=== PATIENT | female | born 1985 | race African-American/Black ===

== ENCOUNTER 2020-03-01 21:41 | Emergency (ER) | payer BC ==
[2020-03-01] MEDS ORDERED: KETOROLAC TROMETHAMINE 60 MG/2 ML SDV IM ONE (22:57)
[2020-03-01] MEDS ORDERED: DIAZEPAM 5 MG TABLET PO ONE (22:57)
--- NOTE | 2020-03-01 23:00 | ER Document Report ---
ED Medical Screen (RME) - General Chief Complaint: Low Back Pain Stated Complaint: LOWER BACK PAIN Time Seen by Provider: 03/01/20 22:57 Mode of Arrival: Ambulatory Information source: Patient Notes: Patient is a 34-year-old -Martiniqu[place] female presenting with low back pain. 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 She states a couple days ago she lifted a heavy sack of male and felt some pain in her lower back. She went to bed with her back hurting and then woke up with worsening pain and spasms. No previous history of significant back injury or surgery. No bladder or bowel dysfunction. No saddle anesthesia. No focal weakness. No urinary symptoms. General exam: Uncomfortable appearing Musculoskeletal midline and paralumbar back tenderness. No step-off I have greeted and performed a rapid initial assessment of this patient. A comprehensive ED assessment and evaluation of the patient, analysis of test results and completion of the medical decision making process will be conducted by additional ED providers. Physical Exam - Vital signs Vitals: Temp Pulse Resp BP Pulse Ox 98.4 F 75 18 122/80 100 03/01/20 22:27 03/01/20 22:27 03/01/20 22:27 03/01/20 22:27 03/01/20 22:27 Course - Vital Signs Vital signs: Temp Pulse Resp BP Pulse Ox 98.4 F 75 18 122/80 100 03/01/20 22:27 03/01/20 22:27 03/01/20 22:27 03/01/20 22:27 03/01/20 22:27
[2020-03-02 00:46] LABS: APPEARANCE,URINE SLIGHTLY-CLOUDY; BILIRUBIN,URINE NEGATIVE (NEGATIVE); COLOR,URINE YELLOW; GLUCOSE, URINE NEGATIVE (NEGATIVE); KETONES,URINE NEGATIVE (NEGATIVE); PROTEIN,URINE NEGATIVE (NEGATIVE); URINE SPECIFIC GRAVITY 1.024
--- NOTE | 2020-03-02 02:31 | RADIOLOGY REPORT (SQ) ---
EXAM DESCRIPTION: [facility]: XR LUMBAR SPINE ANTEROPOSTERIOR, LATERAL, AND OBLIQUES Views: 4 CLINICAL HISTORY: 34 years Female; injury; low back pain after lifting heavy object COMPARISON: None. FINDINGS: Alignment is normal. No subluxation or significant loss of intervertebral disc height or vertebral body height. No evidence for acute fracture. No focal bone lesions. IMPRESSION: 1. Normal lumbar spine.
[2020-03-02 08:37] VITALS: BP 122/58
[2020-03-02] MEDS ORDERED: HYDROCODONE/ACETAMINOPHEN 5-325 MG TABLET PO ONE (09:20)
--- NOTE | 2020-03-02 09:26 | ER Document Report ---
ED General - General Chief Complaint: Back Pain Stated Complaint: LOWER BACK PAIN Time Seen by Provider: 03/01/20 22:57 Mode of Arrival: Ambulatory Information source: Patient - HPI Notes: Patient presents complaint of low back pain. She states this started approximately 2 days ago. It started after lifting a couple heavy bags at work. She states that the pain is severe and radiates across both sides of the lower back. It is sharp. It is constant. Is worse with movement and better with rest. It does radiate as well into both butt cheeks. She denies a denies any abnormal sensations or numbness. She has no saddle anesthesia or cauda equina signs. She states she has no problems with urination or bowel movements. No fevers. - Related Data Allergies/Adverse Reactions: No Known Allergies Allergy (Verified 03/02/20 09:21) Home Medications: ADHD Past Medical History - General Information source: Patient - Social History Smoking Status: Current Every Day Smoker Frequency of alcohol use: None Drug Abuse: None Family History: Reviewed & Not Pertinent Review of Systems - Review of Systems Constitutional: denies: Chills, Fever Cardiovascular: denies: Chest pain, Palpitations Respiratory: denies: Cough, Short of breath -: Yes All other systems reviewed and negative Physical Exam - Vital signs Vitals: Temp Pulse Resp BP Pulse Ox 98.4 F 75 18 122/80 100 03/01/20 22:27 03/01/20 22:27 03/01/20 22:27 03/01/20 22:27 03/01/20 22:27 Interpretation: Normal - General General appearance: Appears well, Alert - HEENT Head: Normocephalic, Atraumatic Eyes: Normal Pupils: PERRL - Respiratory Respiratory status: No respiratory distress Chest status: Nontender Breath sounds: Normal Chest palpation: Normal - Cardiovascular Rhythm: Regular Heart sounds: Normal auscultation Murmur: No - Abdominal Inspection: Normal Distension: No distension Bowel sounds: Normal Tenderness: Nontender Organomegaly: No organomegaly - Back Back: Normal, Tender - Bilateral lumbar spine- patient also has a straight leg raise that is positive bilaterally - Extremities General upper extremity: Normal inspection, Nontender, Normal color, Normal ROM, Normal temperature General lower extremity: Normal inspection, Nontender, Normal color, Normal ROM, Normal temperature, Normal weight bearing. No: Felipe's sign - Neurological Neuro grossly intact: Yes Cognition: Normal Orientation: AAOx4 [place] Coma Scale Eye Opening: Spontaneous [place] Coma Scale Verbal: Oriented Masood Coma Scale Motor: Obeys Commands Masood Coma Scale Total: 15 Speech: Normal Motor strength normal: LUE, RUE, LLE, RLE Sensory: Normal - Psychological Associated symptoms: Normal affect, Normal mood - Skin Skin Temperature: Warm Skin Moisture: Dry Skin Color: Normal Course - Vital Signs Vital signs: Temp Pulse Resp BP Pulse Ox 98.2 F 85 18 122/58 L 100 03/02/20 08:36 03/02/20 08:36 03/02/20 08:36 03/02/20 08:36 03/02/20 08:36 - Laboratory Laboratory results interpreted by me: 03/02/20 00:17 Urine Urobilinogen 2.0 H Leukocyte Esterase Rfl TRACE H Urine Ascorbic Acid 40 H - Diagnostic Test Radiology reviewed: Image reviewed, Reports reviewed Discharge - Discharge Clinical Impression: Low back strain Qualifiers: Encounter type: initial encounter Qualified Code(s): S39.012A - Strain of muscle, fascia and tendon of lower back, initial encounter Condition: Stable Disposition: HOME, SELF-CARE Instructions: Low Back Pain ([facility]), Muscle Strain ([facility]), Oral Narcotic Medication ([facility]) Prescriptions: Hydrocodone/Acetaminophen [[place] 5-325 mg Tablet] 1 tab PO Q6 PRN 3 Days #12 tablet PRN Reason: Forms: Return to Work
== END 2020-03-02 09:40 | disposition home or self-care (01) ==
LOC: ER 21:41
DX: S39.012A Strain of muscle, fascia and tendon of lower back, initial encounter (principal); X50.0XXA Overexertion from strenuous movement or load, initial encounter; Y99.0 Civilian activity done for income or pay; F17.200 Nicotine dependence, unspecified, uncomplicated; Z79.899 Other long term (current) drug therapy
CPT/HCPCS: 99284; 96372; 81025; 81001; 72110; J1885